=== PATIENT | male | born 1970 | race African-American/Black ===

== ENCOUNTER 2021-11-12 10:26 | Emergency (ER) | payer OTHER, SELFPAY ==
[2021-11-12 10:31] VITALS: BP 119/69; PULSE 84; RESP 14; TEMP 36.6; O2SAT 99; BMI 34.4
--- NOTE | 2021-11-12 13:14 | DI.RAD.S_ITS ---
PROCEDURE: XR HIP W PEL IF DONE LT 2V INDICATIONS: Pain/injury TECHNIQUE: AP pelvis with lateral view(s) of the left hip(s). COMPARISON: None. FINDINGS: Bones: No fractures or dislocations. Pelvic ring appears intact. No suspicious bony lesions. Mild bilateral degenerative hip joint space narrowing. Soft tissues: The visualized bowel gas pattern is normal. No suspicious soft tissue calcifications. IMPRESSION: No visualized acute fracture or dislocation. However, if clinical concern and/or pain persist, short interval imaging followup in 7-10 days is recommended, as occult injury cannot be definitively excluded. Dictated by: Kendra Reeves M.D. on 11/12/2021 at 13:57 Approved by: Kendra Reeves M.D. on 11/12/2021 at 13:58
--- NOTE | 2021-11-12 13:14 | DI.RAD.S_ITS ---
PROCEDURE: XR ELBOW LT MIN 3V INDICATIONS: Pain/injury TECHNIQUE: 3 views of the elbow were acquired. COMPARISON: None. FINDINGS: Bones: No fractures or dislocations. No suspicious bony lesions. Soft tissues: No elbow joint effusion. No suspicious soft tissue calcifications. IMPRESSION: No visualized acute fracture or dislocation. However, if clinical concern and/or pain persist, short interval imaging followup in 7-10 days is recommended, as occult injury cannot be definitively excluded. Dictated by: Kendra Reeves M.D. on 11/12/2021 at 13:58 Approved by: Kendra Reeves M.D. on 11/12/2021 at 13:58
--- NOTE | 2021-11-12 13:14 | DI.RAD.S_ITS ---
PROCEDURE: XR SHOULDER LT MIN 2V INDICATIONS: Pain/injury TECHNIQUE: 3 views of the shoulder were acquired. COMPARISON: None. FINDINGS: Bones: No fractures or dislocations. No suspicious bony lesions. Visualized ribs appear intact. Humeral head is high-riding. Qkia-cz-wdiqirip acromioclavicular narrowing. Soft tissues: No suspicious soft tissue calcifications. IMPRESSION: No visualized acute fracture or dislocation. However, if clinical concern and/or pain persist, short interval imaging followup in 7-10 days is recommended, as occult injury cannot be definitively excluded. Yqir-gz-tqyifsuw acromioclavicular degenerative narrowing. High riding appearance of the humeral head, which can be indicative of rotator cuff pathology. Dictated by: Kendra Reeves M.D. on 11/12/2021 at 13:57 Approved by: Kendra Reeves M.D. on 11/12/2021 at 13:57
--- NOTE | 2021-11-12 13:17 | ED_ITS ---
HPI - Fall General Chief Complaint: Fall Stated Complaint: Fell and having pain on left side of body Time Seen by Provider: 11/12/21 12:56 Source: patient Mode of arrival: Ambulatory History of Present Illness HPI Narrative: Patient here for slip and fall on the ice at work in the parking lot. 930 this morning. Complains of left shoulder elevate elbow and left hip pain. Patient in no distress. Denies any other injuries. No head or neck injury. Related Data Allergies Allergy/AdvReac Type Severity Reaction Status Date / Time No Known Drug Allergies Allergy Verified 11/12/21 10:31 Review of Systems Review of Systems Narrative: GENERAL: Denies chills, fatigue, malaise, fever, sweats. HEENT: Denies sinus pain, ear pain, sore throat RESPIRATORY: Denies dyspnea, cough CARDIOVASCULAR: Denies chest pain, palpitations GASTROINTESTINAL: Denies nausea, vomiting, abdominal pain : Denies dysuria, frequency, hematuria MUSCULOSKELETAL: Positive for muscle or bony pain SKIN: Denies rash, skin lesions NEUROLOGIC: Denies weakness, numbness ROS Unobtainable: All systems reviewed & are unremarkable except as noted in HPI and below Patient History Social History Smoking Status: Unknown if ever smoked Smoking Status: Unknown if ever smoked alcohol intake frequency: holidays/special occasions only Substance Use Type: does not use Exam Narrative Exam Narrative: GENERAL: in no distress, not toxic not dyspneic HEAD: Normocephalic. EYES: Pupils equal round No scleral icterus. ENT: Mucous membranes moist. NECK: Trachea midline. CARDIOVASCULAR: Regular rate and rhythm without murmurs RESPIRATORY: Clear to auscultation. Breath sounds equal bilaterally. No wheezes, rales, or rhonchi. GASTROINTESTINAL: Abdomen soft, non-tender EXTREMITIES: No gross deformities. Nontender bilateral shoulder elbows wrists and knees. Nontender bilateral hips. Examination left upper extremity full active range of motion of the left shoulder elbow and wrist. Strong weatherization director in radial pulse light touch intact to thumb and fingers. There is no shortening or rotation of the left lower extremity. Nontender hip knee and ankle. Able to fully flex and extend at the left hip knee and ankle. BACK: No flank tenderness. NEURO: AOx4. SKIN: Warm and dry PSYCH: Not anxious, is cooperative Initial Vital Signs Initial Vital Signs: Vital Signs Temperature 97.8 F 11/12/21 10:31 Pulse Rate 84 11/12/21 10:31 Respiratory Rate 14 11/12/21 10:31 Blood Pressure 119/69 11/12/21 10:31 Pulse Oximetry 99 11/12/21 10:31 Course Course Course Narrative: No new issues during course of stay. Up and walking in the room without any problem. Orders Ordered: ED Orders 11/12/21 13:14 XR elbow LT min 3V Stat XR hip w pel if done LT 2V Stat XR shoulder LT min 2V Stat Reevaluation(s) Reevaluation #1: Reviewed results with patient. Patient states has history of left rotator cuff injury in the past from wrestling. Agrees with treatment plan and follow-up. Time: 14:19 Vital Signs Vital signs: Vital Signs - 8 hr 11/12/21 10:31 Temperature 97.8 F Pulse Rate 84 Respiratory Rate 14 Blood Pressure 119/69 Pulse Oximetry 99 MDM - Fall Differential Diagnosis Differential diagnosis: Likely dislocation of shoulder region and other (Contusion/fracture/strain) Imaging Data Extremity x-ray #1: Radiologist's Impression: [address] [address] XRay Report Signed Patient: Delmi Hanley MR#: [id number] : 1970 Acct:[id number] Age/Sex: 51 / M Date of Service: 11/12/21 Loc: ED Accession Number: [id number] ?? Procedure: XR shoulder LT min 2V Ordering Provider: Yang Thomas MD PROCEDURE:? XR SHOULDER LT MIN 2V ? INDICATIONS:? Pain/injury ? TECHNIQUE:? 3 views of the shoulder were acquired.? ? COMPARISON:? None. ? FINDINGS:? ? Bones:? No fractures or dislocations.? No suspicious bony lesions.? Visualized ribs appear intact.? Humeral head is high-riding.? Ysyv-kw-gciehytz acromioclavicular narrowing. ? Soft tissues:? No suspicious soft tissue calcifications.? ? IMPRESSION:? ? No visualized acute fracture or dislocation. However, if clinical concern and/or pain persist, short interval imaging followup in 7-10 days is recommended, as occult injury cannot be definitively excluded. ? Ofoz-go-meejpmve acromioclavicular degenerative narrowing. ? High riding appearance of the humeral head, which can be indicative of rotator cuff pathology. ? ? Dictated by: Kendra Reeves M.D. on 11/12/2021 at 13:57 ? ? Approved by: Kendra Reeves M.D. on 11/12/2021 at 13:57 ? Extremity x-ray #2: Radiologist's Impression: [address] [address] XRay Report Signed Patient: Delmi Hanley MR#: [id number] : 1970 Acct:[id number] Age/Sex: 51 / M Date of Service: 11/12/21 Loc: ED Accession Number: [id number] ?? Procedure: XR hip w pel if done LT 2V Ordering Provider: Yang Thomas MD PROCEDURE:? XR HIP W PEL IF DONE LT 2V ? INDICATIONS:? Pain/injury ? TECHNIQUE:? AP pelvis with lateral view(s) of the left hip(s).? ? COMPARISON:? None. ? FINDINGS:? ? Bones:? No fractures or dislocations.? Pelvic ring appears intact.? No suspicious bony lesions.? Mild bilateral degenerative hip joint space narrowing. ? Soft tissues:? The visualized bowel gas pattern is normal.? No suspicious soft tissue calcifications.? ? ? IMPRESSION:? No visualized acute fracture or dislocation. However, if clinical concern and/or pain persist, short interval imaging followup in 7-10 days is recommended, as occult injury cannot be definitively excluded. ? Dictated by: Kendra Reeves M.D. on 11/12/2021 at 13:57 ? ? Approved by: Kendra Reeves M.D. on 11/12/2021 at 13:58 ? Extremity x-ray #3: Radiologist's Impression: [address] [address] XRay Report Signed Patient: Delmi Hanley MR#: [id number] : 1970 Acct:[id number] Age/Sex: 51 / M Date of Service: 11/12/21 Loc: ED Accession Number: [id number] ?? Procedure: XR elbow LT min 3V Ordering Provider: Yang Thomas MD PROCEDURE:? XR ELBOW LT MIN 3V ? INDICATIONS:? Pain/injury ? TECHNIQUE:? 3 views of the elbow were acquired.? ? COMPARISON:? None. ? FINDINGS:? ? Bones:? No fractures or dislocations.? No suspicious bony lesions.? ? Soft tissues:? No elbow joint effusion.? No suspicious soft tissue calcifications.? ? ? IMPRESSION:? No visualized acute fracture or dislocation. However, if clinical concern and/or pain persist, short interval imaging followup in 7-10 days is recommend ed, as occult injury cannot be definitively excluded. ? ? Dictated by: Kendra Reeves M.D. on 11/12/2021 at 13:58 ? ? Approved by: Kendra Reeves M.D. on 11/12/2021 at 13:58 ? MDM Narrative Medical decision making narrative: Appropriate for discharge home. Exam and imaging reassuring. Past history of rotator cuff injury on the left side. Return precautions reviewed with him. Orthopedic referral given. Patient does not require L and I form. Discharge Plan Departure Patient Disposition: Home Clinical Impression: Contusion of left shoulder, Contusion of elbow, left, Contusion of hip, left Instructions: DI for Contusion Activity Restrictions/Additional Instructions: Return if worsening questions or concerns. May use ibuprofen or Tylenol for pain. Call provided orthopedic office today for office recheck in a week. Referrals: Blade Hilliard MD [Physician] - Stand Alone Forms: Work Release Note
[2021-11-12 14:21] VITALS: BP 125/76
== END 2021-11-12 14:21 | disposition home or self-care (01) ==
PROVIDERS: Emergency Provider Emergency Medicine
DX: S40.012A Contusion of left shoulder, initial encounter (principal); S50.02XA Contusion of left elbow, initial encounter; S70.02XA Contusion of left hip, initial encounter; W00.0XXA Fall on same level due to ice and snow, initial encounter; Y92.481 Parking lot as the place of occurrence of the external cause; Y99.0 Civilian activity done for income or pay
CPT/HCPCS: 73030; 73080; 73502; 99283